=== PATIENT | female | born 1935 | race Caucasian/White ===

== ENCOUNTER 2020-10-02 12:37 | Outpatient (CLI) | payer MEDICARE, SELFPAY ==
--- NOTE | ~2020-10-02 | DEXA_ITS ---
Bone Density Report Name: Milvia Medeiros Age: 85 Sex: Female Ethnicity: White Date of : 1935 Indication: postmenopausal; height loss; hysterectomy; Referring Provider: Nuzhat Guzman Study: Bone densitometry was performed. Exam Date: October 02, 2020 Accession number: [id number] Bone Density: Region BMD T-score Z-score Classification AP Spine (L3, L4) 1.235 1.2 4.2 Normal Femoral Neck (Left) 0.928 0.7 3.2 Normal Total Hip (Left) 1.004 0.5 2.7 Normal Total Hip Bilateral Avg 0.959 0.2 2.4 Normal Femoral Neck (Right) 0.767 -0.7 1.7 Normal Total Hip (Right) 0.913 -0.2 2.0 Normal World Health Organization criteria for BMD impression classify patients as: Normal (T-score at or above -1.0), Osteopenia (T-score between -1.0 and -2.5), or Osteoporosis (T-score at or below -2.5). 10-year Fracture Risk: FRAX not reported because: All T-scores for Spine Total, Hip Total, Femoral Neck at or above -1.0 Previous Exams: Region Exam Age BMD T-score BMD Change BMD Change Date g/cm2 vs Baseline vs Previous AP Spine(L3, L4) 10/02/2020 85 1.235 1.2 0.015(1.2%)# 0.008(0.6%) 06/13/2016 80 1.227 1.1 0.007(0.6%)# -0.011(-0.9%) 05/30/2014 78 1.238 1.2 0.018(1.5%)# 0.018(1.5%)# 04/17/2012 76 1.220 1.1 Total Hip(Left) 10/02/2020 85 1.004 0.5 -0.064(-6.0%)# -0.045(-4.3%)* 06/13/2016 80 1.050 0.9 -0.018(-1.7%)# -0.016(-1.5%) 05/30/2014 78 1.065 1.0 -0.003(-0.3%)# -0.003(-0.3%)# 04/17/2012 76 1.068 1.0 Total Hip(Right) 10/02/2020 85 0.913 -0.2 -0.134(-12.8%) -0.083(-8.3%)* 06/13/2016 80 0.996 0.4 -0.051(-4.9%)# -0.041(-3.9%)* 05/30/2014 78 1.037 0.8 -0.010(-1.0%)# -0.010(-1.0%)# 04/17/2012 76 1.047 0.9 *Denotes significance at 95% confidence level, LSC for AP Spine = 0.022 g/cm2, LSC for Total Hip = 0.027 g/cm2 Clinical Information Provided by Patient: Has used the following medications: Vitamin D Has the following medical conditions: Hysterectomy Patient maximum height was 65.5 Menopause Age: 47 No regular weight bearing exercise Onset of menses at age 16 Number of children 2 Impression: The patient has normal bone mass. The BMD for the Total Hip(Left) decreased, changing by -4.3% since the last DXA exam. The BMD for the Total Hip(Right) decreased, changing by -8.3% since the last DXA exam. Discussion: BONE DENSITY IS ABOVE THE MINIMUM DESIRABLE LEVEL AT ALL SKELETAL SIT
== END 2020-10-02 12:38 | disposition home or self-care (01) ==
LOC: ANHIMG 12:39
PROVIDERS: PCP Internal Medicine; Visit Provider Nurse Practitioner
DX: Z78.0 Asymptomatic menopausal state (principal)
CPT/HCPCS: 77080

== ENCOUNTER 2022-04-29 02:41 | Day surgery (SDC) | payer MEDICARE, SELFPAY ==
[2022-04-25 13:36] VITALS: BMI 22.0
--- NOTE | 2022-04-29 10:49 | WPDANESEPPF ---
Anes - Initial Pre Proc Eval Procedure: Operation Date: 04/29/22 13:30 Proposed Procedures p Esophagogastroduodenoscopy EGD - Freyd Salinas MD Date/Time: 04/29/22 10:49 Surgeon: Fredy Salinas MD Pre Op Diagnosis: dysphagia Patient Data Age: 86 Gender: F Height: 1.65 m Weight: 60 kg Allergies Allergy/AdvReac Type Severity Reaction Status Date / Time codeine Allergy Unknown Nausea and Verified 04/29/22 12:23 Vomiting hydrocodone Allergy Unknown Nausea and Verified 04/29/22 12:23 Vomiting Penicillins Allergy Unknown hives Verified 04/29/22 12:23 Home Medications Medication Instructions Recorded Confirmed Type aspirin 81 mg tablet,delayed 81 mg PO DAILY 09/07/19 04/25/22 History release (Adult Aspirin Regimen) cholecalciferol (vitamin D3) 50 50 mcg PO DAILY 09/07/20 04/25/22 History mcg (2,000 unit) tablet losartan 100 See Rx Instructions .Route 11/12/21 04/25/22 Rx mg-hydrochlorothiazide 12.5 mg .COMPLEX #90 tabs tablet atorvastatin 40 mg tablet 20 mg PO DAILY #90 tabs 11/22/21 04/25/22 Rx omeprazole 20 mg capsule,delayed See Rx Instructions .Route 12/11/21 04/25/22 Rx release .COMPLEX #90 caps Metamucil 1 cap PO DAILY 04/25/22 04/25/22 History PreserVision AREDS 1 tab-cap PO DAILY 04/25/22 04/25/22 History Tylenol 500 mg PO DAILY 04/25/22 04/25/22 History Patient hx anesthesia problems: none Family hx anesthesia problems: none Results Review: All pre-operative results and documents have been reviewed as part of the pre-operative evaluation. [facility] Past Medical History Medical History (Updated 04/29/22 @ 10:50 by Dima Talbert DO) Chronic atrial fibrillation Constipation Essential hypertension Loose stools Mixed hyperlipidemia Postmenopausal Screening for breast cancer Type 2 diabetes mellitus without complication, without long-term current use of insulin Family History Family History Sibling Family history of malignant neoplasm Mother Family history of malignant neoplasm of cervix Patient's mother is Family history of malignant neoplasm Father Patient's father is Family history of heart disease in male family member before age 55 Other Family history of malignant neoplasm of ovary Social History Social History Smoking status: Never smoker Second hand tobacco smoke exposure: No Alcohol intake: never Substance use: never Substance use type: does not use Living arrangements: alone Spiritual care concerns: No Anes - Eval Final PreProcedure Day of Procedure 04/29/22 10:49 Patient weight: normal Heart: regular rate and rhythm Lungs: clear to auscultation and normal air movement Airway: Mallampati scale class II Neurological: alert and oriented Last oral intake: >/= 8 hours ASA classification: III Emergent: no Anesthetic plan: proceed Anesthesia type and monitoring: general GIVS and standard monitoring Results Review: All pre-operative results and documents have been reviewed as part of the pre-operative evaluation. Informed Consent: The patient's anesthetic plan and its attendant risks and benefits were discussed with the patient/family/POA. Questions were solicited and answers provided to the satisfaction of the patient/family/POA.
[2022-04-29 12:23] VITALS: BP 171/88; PULSE 87; RESP 18; TEMP 36.4; O2SAT 97
[2022-04-29] MEDS: LACTATED RINGERS 1,000 ML 150 ML IV CONT (12:40)
--- NOTE | 2022-04-29 12:48 | WPDHPUPDATE1 ---
History and Physical Update Update Date/Time: 04/29/22 12:48 History and Physical has been reviewed, including an updated exam of the patient. There are NO changes in the patient's condition. Risks, benefits, and alternatives have been discussed and questions answered. Patient agrees to proceed with procedure.
[2022-04-29 13:33] VITALS: BP 111/62; PULSE 75; RESP 25; O2SAT 99
[2022-04-29 13:43] VITALS: BP 130/75; PULSE 82; RESP 21; O2SAT 99
[2022-04-29 13:53] VITALS: BP 145/74; PULSE 75; RESP 22; O2SAT 98
== END 2022-04-29 14:00 | disposition home or self-care (01) ==
PROVIDERS: PCP Internal Medicine; Visit Provider Internal Medicine Gastroenterology
PROC: 0DJ08ZZ Inspection of Upper Intestinal Tract, Via Natural or Artificial Opening Endoscopic (ICD-10-PCS; CPT 43235; principal; 2022-04-29 13:30)
DX: R13.19 Other dysphagia (principal); R05.3 Chronic cough; R49.0 Dysphonia; Z90.49 Acquired absence of other specified parts of digestive tract; K59.00 Constipation, unspecified; R19.5 Other fecal abnormalities; Z79.82 Long term (current) use of aspirin; I10 Essential (primary) hypertension; K21.9 Gastro-esophageal reflux disease without esophagitis; I48.20 Chronic atrial fibrillation, unspecified; E11.9 Type 2 diabetes mellitus without complications; E78.2 Mixed hyperlipidemia
CPT/HCPCS: 43450; 43235; J2704; J7120

== ENCOUNTER 2022-05-07 07:14 | Outpatient (CLI) | payer MEDICARE, SELFPAY ==
--- NOTE | ~2022-05-07 | XR_ITS ---
MODIFIED ESOPHAGRAM HISTORY: Globus sensation with feeling of food getting stuck. TECHNIQUE: Modified barium esophagram was performed on 05/07/2022. I administered fluoroscopy and per formed the exam with speech pathologist. Patient was seated for lateral fluoroscopic imaging for ing estion of thin liquids, pudding, solids and quantified amounts, followed by thin liquids in uncontrol led amounts. This was recorded on tape. A single fluoroscopic spot image was also recorded. The DAP f or this procedure was 1.01 Gycm2. The amount of fluoroscopy time used during this procedure was 1.9 m inutes. FINDINGS: Oral stage: Adequate function. Pharyngeal stage: Small amount of flash laryngeal penetration with thin liquids which cleared immedia tely. No aspiration. Cervical/esophageal stage: Adequate function. IMPRESSION: Small amount of flash laryngeal penetration with thin liquids. No aspiration. Please cor relate with speech pathologist findings and specific feeding recommendations. Reviewed, dictated and finalized at location A. IMPRESSION: Small amount of flash laryngeal penetration with thin liquids. No a spiration. Please correlate with speech pathologist findings and specific feed ing recommendations.
--- NOTE | 2022-05-07 08:57 | REHSTMBS ---
Assessment and note entered by Brina De La Rosa, [employer] Modified Barium Swallow Evaluation Feeding Type Recommended Oral Food Consistency Regular, Level 7 Liquid Consistency Thin (0) ST Clinical Summary This patient was seen for a Modified Barium Swallow study at the request of her physician. She reported that this morning, she felt like a small piece of toast stuck in her throat. She reports that she has a history of a hernia, and that she has been tasting more acid in her throat lately. Additionally, she reports that pills have gotten stuck in her throat and underwent an EGD a week ago. The patient was presented with graduated amounts of thin liquid per spoon, cup, and straw, pudding mixed with semi-solid contrast medium, and both pieces of crackers and pieces of fruit mixed with the pudding mixture. Patient exhibited flash penetration on thin liquid per cup leaving no residue in the airway. Results indicate this patient's swallowing skills are grossly within normal limits. She was instructed in the use of head flexion to assist with swallowing pills and to assist with prevention of penetration/aspiration. She voiced good understanding of this teaching. No further Speech Therapy is required at this time. Patient is referred back to her physician for further assessment of her reflux concerns. Thank you for this referral.
== END 2022-05-07 07:15 | disposition home or self-care (01) ==
PROVIDERS: PCP Internal Medicine; Visit Provider Internal Medicine Gastroenterology
DX: R13.10 Dysphagia, unspecified (principal)
CPT/HCPCS: 92611

== ENCOUNTER 2022-06-10 07:43 | Outpatient (CLI) | payer MEDICARE, SELFPAY ==
--- NOTE | ~2022-06-10 | MM_ITS ---
EXAMINATION: MM screening carlos BI w raisa HISTORY: Screening mammogram TECHNIQUE: Craniocaudal and mediolateral oblique 3-D tomosynthesis images were obtained and synthetic 2-D images were generated. CAD analysis was submitted and interpreted. COMPARISON: No prior mammogram is available for comparison at this institution. BREAST PARENCHYMAL COMPOSITION: There are scattered areas of fibroglandular density. FINDINGS: No suspicious mass, calcification, or architectural distortion are identified in either barb ast to suggest malignancy. IMPRESSION: 1. No mammographic evidence of malignancy. 2. Recommend routine screening mammography while the patient remains in good health. BI-RADS Category 1: Negative Reviewed, dictated and finalized at location A. [employer] IMPRESSION: 1. No mammographic evidence of malignancy. 2. Recommend routine screening mammography while the patient remains in good he alth. BI-RADS Category 1: Negative
== END 2022-06-10 07:44 | disposition home or self-care (01) ==
LOC: ANHIMG 07:44
PROVIDERS: PCP Internal Medicine; Visit Provider Internal Medicine
DX: Z12.31 Encounter for screening mammogram for malignant neoplasm of breast (principal)
CPT/HCPCS: 77063; 77067

== ENCOUNTER 2022-10-17 14:48 | Outpatient (CLI) | payer MEDICARE, SELFPAY ==
--- NOTE | ~2022-10-17 | US_ITS ---
EXAMINATION: US venous doppler LE RT DATE: 10/17/2022 15:15 INDICATION: Right lower limb pain TECHNIQUE: Crane scale images without and with compression and Doppler images of the right lower extre mity veins were obtained. COMPARISON: 07/23/2017 FINDINGS: The right common femoral vein, profunda femoral vein, femoral vein, popliteal vein, peronea l trunk, posterior tibial veins, and greater saphenous vein are patent. An approximately 1.5 cm Siegel 's cyst is noted. IMPRESSION: 1. Patent right lower extremity veins. No evidence of deep venous thrombosis. 2. Small Siegel's cyst. Reviewed, dictated and finalized at location L.
== END 2022-10-17 14:49 | disposition home or self-care (01) ==
PROVIDERS: PCP Internal Medicine; Visit Provider Nurse Practitioner Family
DX: M79.606 Pain in leg, unspecified (principal); M79.89 Other specified soft tissue disorders; M71.21 Synovial cyst of popliteal space [Baker], right knee
CPT/HCPCS: 93971

== ENCOUNTER 2023-04-15 21:14 | Emergency (ER) | payer MEDICARE, SELFPAY ==
--- NOTE | ~2023-04-15 | CT_ITS ---
EXAMINATION: CT abdomen pelvis wo con DATE: 04/15/2023 23:27 INDICATION: Vomiting. TECHNIQUE: Computed tomography (CT) of the abdomen and pelvis was performed without intravenous contr ast. Automated exposure control and iterative reconstruction technique were employed. The dose-length product was 287.63 mGy-cm. COMPARISON: CT abdomen and pelvis 11/11/2018 FINDINGS: The visualized portions of the lung bases demonstrate mild atelectasis. No pleural effusion . The heart size is normal. There are coronary artery calcifications. No pericardial effusion. There is a 13 mm cyst in the liver. There are changes of cholecystectomy. The spleen, pancreas, adrenal gla nds, and right kidney are normal. There are cysts in left kidney measuring up to 2.0 cm. There is no urolithiasis. The appendix is normal. There are no dilated loops of bowel. There is diverticulosis of the colon without evidence of diverticulitis. There is a right inguinal hernia containing fat. There are no pathologically enlarged lymph nodes. There is no free intraperitoneal fluid. There is calcifi ed atherosclerosis of the aorta and many of the other arteries. There is lumbar dextroscoliosis. Ther e is severe thoracic and lumbar spondylosis. IMPRESSION: 1. No etiology for the patient's symptoms. Reviewed, dictated and finalized at location E.
--- NOTE | ~2023-04-15 | XR_ITS ---
EXAMINATION: XR chest 1V DATE: 04/15/2023 23:14 INDICATION: Weakness. TECHNIQUE: A single frontal view of the chest was obtained. COMPARISON: Chest 2 views 10/27/2014, chest CT 11/11/2018 FINDINGS: There is mild atelectasis in left midlung zone. No pleural effusion or pneumothorax. The he art size is normal. Surgical clips in the right upper quadrant are likely from cholecystectomy. IMPRESSION: 1. Mild atelectasis in left midlung zone. Reviewed, dictated and finalized at location E.
[2023-04-15 21:19] VITALS: BP 118/64; PULSE 98; RESP 17; TEMP 37.3; O2SAT 99
[2023-04-15 22:15] VITALS: BP 134/69; PULSE 96; RESP 18; O2SAT 96
--- NOTE | 2023-04-15 23:05 | ECG_ITS ---
Measurements Intervals [place] Rate: 93 P: 65 MD: 148 QRS: 39 QRSD: 81 T: 28 QT: 334 QTc: 416 Interpretive Statements SINUS RHYTHM WITH OCCASIONAL SUPRAVENTRICULAR PREMATURE COMPLEXES LOW QRS VOLTAGE IN PRECORDIAL LEADS [QRS DEFLECTION < 1.0 mV IN CHEST LEADS] COMPARED TO ECG 11/11/2018 21:58:10 NO SIGNIFICANT CHANGE Electronically Signed On 04-16-2023 15:42:55 CDT by Luz Tejada M.D.
[2023-04-15] MEDS: ONDANSETRON INJ 4 MG/2 ML VIAL IV PUSH (23:35)
[2023-04-15] MEDS: SODIUM CHLORIDE 0.9% IV 1,000 ML 999 ML IV CONT (23:35)
[2023-04-15 23:51] LABS: Basophils Percent Auto 0.3 % (0.2-1.2); Eosinophils Absolute Auto 0.1 K/mm3 (0-0.3); Eosinophils Percent Auto 1.1 % (0-4.4); Hematocrit 37.9 % (37.0-47.0); Hemoglobin 12.7 g/dL (12.0-15.0); Immature Granulocyte Absolute 0.05 K/mm3 (0.00-0.031); Immature Granulocyte Percent A 0.5 % (0-0.5); Lymphocytes Percent Auto 7.8 % (18.3-44.2); Mean Corpuscular HGB Conc 33.5 g/dl (32-36); Mean Corpuscular Hemoglobin 31.1 pg (26-34); Mean Corpuscular Volume 92.7 fl (80-100); Mean Platelet Volume 9.8 fl (7.4-10.4); Monocytes Absolute Auto 0.8 K/mm3 (0.1-0.6); Monocytes Percent Auto 7.7 % (2.6-8.5); Neutrophils Absolute Auto 8.5 K/mm3 (1.3-6.7); Neutrophils Percent Auto 82.6 % (45.5-73.1); Platelet Count Result 232 k/mm3 (150-375); Red Blood Count 4.09 M/mm3 (4.2-5.4); Red Cell Distribution Width 13.7 % (11.5-14.5); White Blood Count 10.3 K/mm3 (4.5-10.0)
[2023-04-16 00:04] LABS: Alanine Aminotransferase 19 U/L (6-35); Albumin Level 4.2 g/dL (3.5-5.1); Alkaline Phosphatase 96 U/L (38-126); Anion Gap 8 mmol/L (8-16); Aspartate Amino Transferase 34 U/L (14-36); Bilirubin,Total 0.7 mg/dL (0.2-1.3); Blood Urea Nitrogen 13 mg/dL (7-17); Calcium 8.9 mg/dL (8.4-10.2); Carbon Dioxide 30 mmol/L (22-30); Chloride 95 mmol/L (98-107); Estimated CRCL calculation 40 ml/min; Estimated Glomerular Filt Rate > 60; Glucose 130 mg/dL (65-110); Potassium 2.9 mmol/L (3.4-5.0); Sodium 133 mmol/L (137-145)
[2023-04-16 00:08] VITALS: BP 124/74; PULSE 97; RESP 20; O2SAT 97
[2023-04-16] MEDS: SODIUM CHLORIDE 0.9% IV 1,000 ML 999 ML IV CONT (00:33)
[2023-04-16 01:23] LABS: Appearance Urine Clear (Clear); Bacteria Urine None Seen /hpf; Bilirubin Urine Negative (Negative); Blood Urine Trace (Negative); Color Urine Yellow (Yellow); Glucose Urine UA Negative (Negative); Ketones Urine 1+ mg/dL (Negative); Leukocyte Esterase Ur 1+ LEU/UL (Negative); Nitrate Urine Negative (Negative); Non Pathogenic Casts 0-2; Protein Urine Negative (Negative); Specific Grav Ur 1.008 (1.001-1.035); Squamous Epithelial Cell Urine None seen /hpf (Few); Urobilinogen Urine 0.2 mg/dL (<2.0)
[2023-04-16 01:27] LABS: Add Urine Microscopic? YES
--- NOTE | 2023-04-16 01:30 | ED.GENADULT ---
HPI - General Adult General Chief complaint: Nausea/Vomiting/Diarrhea Stated complaint: n/v/d, staph infection Time Seen by Provider: 04/15/23 22:30 History of Present Illness HPI narrative: Patient presents the emergency department with her son. For the past few days that she has had no appetite. She gags when she eats anything. She is having dry heaving. Decreased bowel movements. Patient denies fevers chills. She had cellulitis to her left lower extremity and has been taking minocycline. She was told she had staph. Overall the left lower extremity looks well and has almost resolved Related Data Home Medications Medication Instructions Recorded Confirmed aspirin 81 mg tablet,delayed 81 mg PO DAILY 09/07/19 10/17/22 release (Adult Aspirin Regimen) cholecalciferol (vitamin D3) 50 50 mcg PO DAILY 09/07/20 10/17/22 mcg (2,000 unit) tablet PreserVision AREDS 1 tab-cap PO DAILY 04/25/22 10/17/22 Tylenol 500 mg PO DAILY 04/25/22 10/17/22 Allergies Allergy/AdvReac Type Severity Reaction Status Date / Time codeine Allergy Unknown Nausea and Verified 04/15/23 22:23 Vomiting hydrocodone Allergy Unknown Nausea and Verified 04/15/23 22:23 Vomiting Penicillins Allergy Unknown hives Verified 04/15/23 22:23 Review of Systems Review of Systems: Review of systems negative except what is documented in the [facility] Past Medical History Medical History Chronic atrial fibrillation Constipation Essential hypertension Loose stools Mixed hyperlipidemia Postmenopausal Screening for breast cancer Type 2 diabetes mellitus without complication, without long-term current use of insulin Family History Family History Sibling Family history of malignant neoplasm Mother Family history of malignant neoplasm of cervix Patient's mother is Family history of malignant neoplasm Father Patient's father is Family history of heart disease in male family member before age 55 Other Family history of malignant neoplasm of ovary Social History Social History Smoking status: Never smoker Second hand tobacco smoke exposure: No Alcohol intake: never Substance use: never Substance use type: does not use Living arrangements: alone Spiritual care concerns: No Exam Narrative: GENERAL: Well-appearing, well-nourished, and in no acute distress. HEAD: Normocephalic, atraumatic. EYES: PERRLA and EOMI. ENT: Nares clear, no rhinorrhea or epistaxis. Mucous membranes moist. NECK: Supple. CHEST: Clear to auscultation. No respiratory distress. HEART: Regular rate and rhythm. ABDOMEN: Soft, nontender, nondistended. EXTREMITIES: Normal range of motion. No edema. SKIN: Warm, dry, no rash. NEURO: No focal deficits. Alert and oriented x3. PSYCH: Normal mood and affect. Course Course Emergency Course: Patient overall well-appearing. In no distress. Exam benign including abdomen that is soft and nontender. Vital signs stable. Labs also grossly unremarkable. She states she feels dehydrated and has not been able to urinate. Urine pending. Troponins unremarkable. CT scan abdomen pelvis negative for acute pathology. Vital Signs Vital signs: Vital Signs Temperature 37.3 C 04/15/23 21:19 Pulse Rate 98 04/15/23 21:19 Respiratory Rate 17 04/15/23 21:19 Blood Pressure 118/64 04/15/23 21:19 Pulse Oximetry 99 04/15/23 21:19 Oxygen Delivery Room Air 04/15/23 21:19 Temperature 37.3 C 04/15/23 21:19 Pulse Rate 88 04/16/23 02:15 Respiratory Rate 19 04/16/23 02:15 Blood Pressure 110/60 04/16/23 02:15 Pulse Oximetry 95 04/16/23 02:15 Oxygen Delivery Room Air 04/15/23 21:19 Medical Decision Making [facility] Narrative Medical decision making narrative: Urine shows possible very
[2023-04-16 02:15] VITALS: BP 110/60; PULSE 88; RESP 19; O2SAT 95
== END 2023-04-16 02:14 | disposition home or self-care (01) ==
PROVIDERS: Emergency Provider Emergency Medicine; PCP Nurse Practitioner Family
DX: E86.0 Dehydration (principal); R63.0 Anorexia; R11.2 Nausea with vomiting, unspecified; R82.998 Other abnormal findings in urine; I48.20 Chronic atrial fibrillation, unspecified; I10 Essential (primary) hypertension; E11.9 Type 2 diabetes mellitus without complications; E78.2 Mixed hyperlipidemia; Z68.22 Body mass index [BMI] 22.0-22.9, adult; Z79.82 Long term (current) use of aspirin
CPT/HCPCS: 36415; 71045; 74176; 80053; 81001; 84484; 85025; 87077; 87086; 87186; 93005; 96360; 96361; 96374; 99284; J2405; J7030

== ENCOUNTER 2023-04-19 17:39 | Emergency (ER) | payer MEDICARE, SELFPAY ==
[2023-04-19] VITALS (16 sets, daily range): BP systolic 128–148; BP diastolic 74–102; PULSE 102–126; RESP 13–31; TEMP 36.6; O2SAT 87–99
--- NOTE | ~2023-04-19 | CT_ITS ---
EXAMINATION: CT diagnostic chest w con DATE: 04/19/2023 19:01 INDICATION: MIDSTERNAL CHEST PAIN, SOB TECHNIQUE: Computed tomography (CT) of the chest was performed with 100 mL Omnipaque-350 intravenous contrast. Automated exposure control and iterative reconstruction technique were employed. The dose-l ength product was 136.41 mGy-cm. COMPARISON: X-ray chest and CT abdomen pelvis, same date. FINDINGS: CHEST: Thoracic aorta: No significant dilation. Mild arch calcification. Lung parenchyma and airways: Linear scar. Mild peripheral reticulations. Thoracic inlet, axillae and chest wall: No thyroid or soft tissue mass. No axillary lymphadenopathy. Mediastinum: No mass or lymphadenopathy. Heart and pericardium: Mild cardiomegaly. No pericardial effusion. Coronary artery calcifications: Mild. Pleura: No effusion or mass. Upper abdomen: No significant finding. Thoracic bones: No acute osseous finding in the chest. IMPRESSION: No acute thoracic process detected. Reviewed, dictated and finalized at location K.
--- NOTE | ~2023-04-19 | XR_ITS ---
EXAMINATION: XR chest 1V Exam Date/Time: 04/19/2023 18:45 CDT HISTORY: Upper abdominal pain Comparison: 04/15/2023. RESULT: Lines, tubes, and devices: None. Lungs and pleura: Mild reticular opacities. Senescent change. Lingular scar. Cardiomediastinal silhouette: Stable. Other: No acute osseous or upper abdominal finding. IMPRESSION: No acute cardiopulmonary process. Reviewed, dictated and finalized at location K.
--- NOTE | ~2023-04-19 | CT_ITS ---
EXAMINATION: CT abdomen pelvis w con DATE: 04/19/2023 18:53 INDICATION: abd pain TECHNIQUE: Computed tomography (CT) of the abdomen and pelvis was performed with 100 mL Omnipaque-350 intravenous contrast. Automated exposure control and iterative reconstruction technique were employe d. The dose-length product was 374.60 mGy-cm. COMPARISON: 04/15/2023. FINDINGS: Lower thorax: Senescent change. Bibasilar scar/atelectasis. Liver: Small left lobe cyst or hemangioma. Biliary/Gallbladder: Gallbladder is absent. Mild intrahepatic and extra hepatic bile duct dilation, l ikely secondary to cholecystectomy. Pancreas: No mass or duct dilation. Spleen: Normal. Adrenals:No mass. Kidneys: No suspicious mass, obstructing stone, or hydronephrosis. GI tract: Mild distal esophageal and gastric wall edema. No small or large bowel dilation. Normal shae endix. Diverticulosis without diverticulitis. Mesentery/Peritoneum: No ascites, mass, or free air. Retroperitoneum: No mass. Atherosclerotic abdominal aortic and/or arterial calcifications. Pelvis: Pelvic organs are within normal limits. Soft Tissues: Soft tissues and body wall unremarkable. Bones: No acute osseous finding. IMPRESSION: Mild esophagitis/gastritis. Otherwise, no acute abdominopelvic process detected Reviewed, dictated and finalized at location K.
--- NOTE | 2023-04-19 17:50 | ECG_ITS ---
Measurements Intervals [place] Rate: 104 P: 58 [place]: 141 QRS: 22 QRSD: 82 T: 17 QT: 311 QTc: 410 Interpretive Statements SINUS TACHYCARDIA WITH OCCASIONAL VENTRICULAR PREMATURE COMPLEXES NONSPECIFIC ST AND T-WAVE ABNORMALITY ABNORMAL ECG COMPARED TO ECG 04/15/2023 23:54:52 SINUS TACHYCARDIA NOW PRESENT T-WAVE ABNORMALITY NOW PRESENT Electronically Signed On 04-20-2023 8:49:13 CDT by Willis Aragon M.D.
--- NOTE | 2023-04-19 17:57 | ED.ABDPAIN ---
HPI - Abdominal Pain General Chief Complaint: Abdominal Pain Stated Complaint: epigastric burning Time Seen by Provider: 04/19/23 17:49 Source: patient Mode of arrival: EMS Related Data Home Medications Medication Instructions Recorded Confirmed aspirin 81 mg tablet,delayed 81 mg PO DAILY 09/07/19 10/17/22 release (Adult Aspirin Regimen) cholecalciferol (vitamin D3) 50 50 mcg PO DAILY 09/07/20 10/17/22 mcg (2,000 unit) tablet PreserVision AREDS 1 tab-cap PO DAILY 04/25/22 10/17/22 Tylenol 500 mg PO DAILY 04/25/22 10/17/22 Allergies Allergy/AdvReac Type Severity Reaction Status Date / Time codeine Allergy Unknown Nausea and Verified 04/19/23 17:54 Vomiting hydrocodone Allergy Unknown Nausea and Verified 04/19/23 17:54 Vomiting Penicillins Allergy Unknown hives Verified 04/19/23 17:54 [facility] Past Medical History Medical History Chronic atrial fibrillation Constipation Essential hypertension Loose stools Mixed hyperlipidemia Postmenopausal Screening for breast cancer Type 2 diabetes mellitus without complication, without long-term current use of insulin Family History Family History Sibling Family history of malignant neoplasm Mother Family history of malignant neoplasm of cervix Patient's mother is Family history of malignant neoplasm Father Patient's father is Family history of heart disease in male family member before age 55 Other Family history of malignant neoplasm of ovary Social History Social History Smoking status: Never smoker Second hand tobacco smoke exposure: No Alcohol intake: never Substance use: never Substance use type: does not use Living arrangements: alone Spiritual care concerns: No Course Vital Signs Vital signs: Vital Signs Temperature 36.6 C 04/19/23 17:40 Pulse Rate 102 H 04/19/23 17:40 Respiratory Rate 13 04/19/23 17:40 Blood Pressure 145/77 H 04/19/23 17:40 Pulse Oximetry 93 04/19/23 17:40 Oxygen Delivery Room Air 04/19/23 17:40 Temperature 36.6 C 04/19/23 17:40 Pulse Rate 102 H 04/19/23 17:40 Respiratory Rate 13 04/19/23 17:40 Blood Pressure 145/77 H 04/19/23 17:40 Pulse Oximetry 93 04/19/23 17:40 Oxygen Delivery Room Air 04/19/23 17:40 MDM - Abdominal Pain ECG Data EKG #1: Attestation: I personally reviewed and interpreted this ECG as follows: ECG completion date: 04/19/23 ECG completion time: 18:44 Interpretation: Sinus tachycardia at 104 bpm with occasional PVCs, nonspecific T wave abnormality, abnormal rhythm EKG, compared to EKG on April 15, 2023 sinus tachycardia now present, T wave abnormality now present. Discharge Plan Discharge Instructions: Antibiotic Form Prescriptions: No Action aspirin [Adult Aspirin Regimen] 81 mg tablet,delayed release (DR/EC) 81 mg PO DAILY cholecalciferol (vitamin D3) 50 mcg (2,000 unit) tablet 50 mcg PO DAILY famotidine [Pepcid] 40 mg tablet 40 mg PO DAILY Qty: 7 0RF ondansetron 4 mg tablet,disintegrating 4 mg PO Q8H PRN (Reason: nausea and vomiting) Qty: 20 0RF PreserVision AREDS 1 tab-cap PO DAILY Tylenol 500 mg PO DAILY losartan-hydrochlorothiazide 100-12.5 mg tablet See Rx Instructions .ROUTE .COMPLEX Qty: 100 1RF Dose Instruction: Take 1 tablet by mouth once daily Rx Instructions: Take 1 tablet by mouth once daily omeprazole 20 mg capsule,delayed release(DR/EC) See Rx Instructions .ROUTE .COMPLEX Qty: 90 1RF Dose Instruction: Take 1 capsule by mouth once daily Rx Instructions: Take 1 capsule by mouth once daily atorvastatin 20 mg tablet 20 mg PO DAILY Qty: 100 2RF Follow-up/Referrals: Ghada Floyd APRN [Primary Care Provider] -
[2023-04-19 18:10] LABS: Basophils Percent Auto 0.3 % (0.2-1.2); Eosinophils Absolute Auto 0.4 K/mm3 (0-0.3); Eosinophils Percent Auto 3.9 % (0-4.4); Hematocrit 33.9 % (37.0-47.0); Hemoglobin 11.4 g/dL (12.0-15.0); Immature Granulocyte Absolute 0.04 K/mm3 (0.00-0.031); Immature Granulocyte Percent A 0.4 % (0-0.5); Lymphocytes Absolute Auto 1.04 K/mm3 (0.9-3.2); Lymphocytes Percent Auto 9.5 % (18.3-44.2); Mean Corpuscular HGB Conc 33.6 g/dl (32-36); Mean Corpuscular Volume 92.1 fl (80-100); Mean Platelet Volume 9.2 fl (7.4-10.4); Monocytes Absolute Auto 0.9 K/mm3 (0.1-0.6); Monocytes Percent Auto 8.6 % (2.6-8.5); Neutrophils Absolute Auto 8.5 K/mm3 (1.3-6.7); Neutrophils Percent Auto 77.3 % (45.5-73.1); Platelet Count Result 326 k/mm3 (150-375); Red Blood Count 3.68 M/mm3 (4.2-5.4); Red Cell Distribution Width 13.3 % (11.5-14.5)
[2023-04-19] MEDS: SODIUM CHLORIDE 0.9% IV 1,000 ML 999 ML IV CONT ×2 (18:13→20:19)
[2023-04-19 18:24] LABS: Alanine Aminotransferase 23 U/L (6-35); Albumin Level 3.6 g/dL (3.5-5.1); Alkaline Phosphatase 88 U/L (38-126); Anion Gap 7 mmol/L (8-16); Aspartate Amino Transferase 29 U/L (14-36); Bilirubin,Total 0.6 mg/dL (0.2-1.3); Blood Urea Nitrogen 15 mg/dL (7-17); Calcium 8.5 mg/dL (8.4-10.2); Carbon Dioxide 32 mmol/L (22-30); Chloride 95 mmol/L (98-107); Estimated CRCL calculation 33 ml/min; Estimated Glomerular Filt Rate 53; Glucose 115 mg/dL (65-110); Lipase 183 U/L (23-300); Potassium 2.8 mmol/L (3.4-5.0); Sodium 134 mmol/L (137-145)
[2023-04-19 18:45] LABS: Troponin I 0.017 ng/mL (0.000-0.034)
--- NOTE | 2023-04-19 19:05 | ED.ABDPAIN ---
HPI - Abdominal Pain General Chief Complaint: Abdominal Pain Stated Complaint: epigastric burning Time Seen by Provider: 04/19/23 17:49 History of Present Illness HPI narrative: 87-year-old female present emerged department for evaluation of throat and epigastric soreness. Patient denies any prior history of esophagitis gastritis or heartburn. Patient states symptoms started about 11:00. Patient denies any other chest pain or pain that radiates to her back. Patient denies any abdominal pain. Patient did have a recent illness where she had decreased p.o. intake and persistent nausea with some dry heaving. Patient states she had been feeling better today had been eating and drinking well but developed the epigastric soreness. Patient denies any other pain or injury Related Data Home Medications Medication Instructions Recorded Confirmed aspirin 81 mg tablet,delayed 81 mg PO DAILY 09/07/19 10/17/22 release (Adult Aspirin Regimen) cholecalciferol (vitamin D3) 50 50 mcg PO DAILY 09/07/20 10/17/22 mcg (2,000 unit) tablet PreserVision AREDS 1 tab-cap PO DAILY 04/25/22 10/17/22 Tylenol 500 mg PO DAILY 04/25/22 10/17/22 Allergies Allergy/AdvReac Type Severity Reaction Status Date / Time codeine Allergy Unknown Nausea and Verified 04/19/23 17:54 Vomiting hydrocodone Allergy Unknown Nausea and Verified 04/19/23 17:54 Vomiting Penicillins Allergy Unknown hives Verified 04/19/23 17:54 Review of Systems Review of Systems: All systems reviewed & are unremarkable except as noted in HPI and below PMFSH Past Medical History Medical History Chronic atrial fibrillation Constipation Essential hypertension Loose stools Mixed hyperlipidemia Postmenopausal Screening for breast cancer Type 2 diabetes mellitus without complication, without long-term current use of insulin Family History Family History Sibling Family history of malignant neoplasm Mother Family history of malignant neoplasm of cervix Patient's mother is Family history of malignant neoplasm Father Patient's father is Family history of heart disease in male family member before age 55 Other Family history of malignant neoplasm of ovary Social History Social History Smoking status: Never smoker Second hand tobacco smoke exposure: No Alcohol intake: never Substance use: never Substance use type: does not use Living arrangements: alone Spiritual care concerns: No Exam Narrative: APPEARANCE: Well appearing, no pain, no distress, well-nourished. HEAD: normocephalic, atraumatic. EYES: PERRLA/EOMI, conjunctivae clear. NOSE: Normal no drainage NECK: Supple. No adenopathy, no masses. RESPIRATORY: Airway patent, respirations nonlabored. Clear to auscultation bilaterally, no rales, rhonchi, wheezing. CARDIOVASCULAR: Regular rate and rhythm without murmurs rubs or gallops. ABDOMINAL: Soft, nontender, nondistended, normal bowel sounds MUSCULOSKELETAL: Moves all extremities. Strength/ROM intact, No edema, No calf tenderness. NEURO: Alert. Cranial nerves II through XII intact. Grossly intact SKIN: Warm, dry. Normal Color Course Course Emergency Course: 87-year-old female presented the emergency department for evaluation of epigastric soreness. Patient is afebrile but does have a minor leukocytosis of 11.1. Hemoglobin is stable 11.4. Patient CMP patient does have a potassium of 2.8 this was replaced with both IV and p.o. Patient's creatinine is at her baseline but the GFR is a little low and patient is tachycardic with a heart rate into the 1 teens. Patient is being rehydrated. Patient had a negative troponin. Imaging was ordered and did show evidence of esophagitis/gastritis on the abdominal CT, chest CT showed no acute process along with the c
[2023-04-19] MEDS: BELLADONNA ALK/PHENOB ELIX 10 ML, MAG HYDROX/ALUMINUM HYD/SIMETH 30 ML, LIDOCAINE HCL 2... PO (19:32)
[2023-04-19 19:35] LABS: INR 1.1; Prothrombin Time 14.6 Seconds (11.1-14.7)
[2023-04-19 19:36] LABS: Partial Thromboplastin Time 38.9 SECONDS (22.3-36.8)
[2023-04-19] MEDS: POTASSIUM CHLORIDE 20 MEQ PACKET (FOR LIQUID) 40 MEQ PO (19:42)
[2023-04-19 19:52] LABS: Appearance Urine Clear (Clear); Bilirubin Urine Negative (Negative); Blood Urine 1+ (Negative); Color Urine Yellow (Yellow); Glucose Urine UA Negative (Negative); Ketones Urine Negative (Negative); Leukocyte Esterase Ur Negative LEU/UL (Negative); Nitrate Urine Negative (Negative); Protein Urine Negative (Negative); Specific Grav Ur <= 1.005 (1.001-1.035); Urobilinogen Urine 0.2 mg/dL (<2.0); pH Urine 5.5 (5.0-9.0)
[2023-04-19] MEDS: KCL 20 MEQ/SW 100 ML 100 ML 50 MEQ IVPB (19:52)
[2023-04-19] MEDS: ONDANSETRON INJ 4 MG/2 ML VIAL (19:58)
[2023-04-19] MEDS: SODIUM CHLORIDE 0.9% IV 250 ML 999 ML (19:58)
[2023-04-19 20:01] LABS: Bacteria Urine None Seen /hpf; Non Pathogenic Casts 0-2; Squamous Epithelial Cell Urine None seen /hpf (Few); WBC Urine 0-5 /hpf
[2023-04-19 20:07] LABS: Add Urine Microscopic? YES
[2023-04-19] MEDS: METOPROLOL TARTRATE INJ 5 MG/5 ML VIAL IV PUSH (21:32)
--- NOTE | 2023-04-19 21:51 | PC.NURSE ---
Per EDP wean patient off oxygen.
[2023-04-19 22:14] LABS: Troponin I 0.028 ng/mL (0.000-0.034)
== END 2023-04-19 23:01 | disposition home or self-care (01) ==
PROVIDERS: Emergency Medicine; Emergency Provider Emergency Medicine; PCP Nurse Practitioner Family
DX: K20.90 Esophagitis, unspecified without bleeding (principal); I48.20 Chronic atrial fibrillation, unspecified; I10 Essential (primary) hypertension; E78.2 Mixed hyperlipidemia; E11.9 Type 2 diabetes mellitus without complications; Z79.82 Long term (current) use of aspirin; R00.0 Tachycardia, unspecified; I49.3 Ventricular premature depolarization; R94.31 Abnormal electrocardiogram [ECG] [EKG]
CPT/HCPCS: 36415; 71045; 71260; 74177; 80053; 81001; 83690; 84484; 85025; 85610; 85730; 93005; 96361; 96365; 96366; 96375; 99284; A9270; J2405; J3480; J7030; J7050; Q9967

== ENCOUNTER 2023-11-27 09:37 | Outpatient (CLI) | payer MEDICARE, SELFPAY ==
--- NOTE | ~2023-11-27 | XR_ITS ---
Right Knee Technique: AP, lateral, and sunrise views were obtained. Clinical History: Pain Findings: No fracture or dislocation is seen. Osseous alignment is anatomic. There is moderate tricom partmental degenerative change. Soft tissues are unremarkable. No joint effusion is seen. Impression: Moderate tricompartmental degenerative change. Reviewed, dictated and finalized at [facility]. Impression: Moderate tricompartmental degenerative change.
--- NOTE | ~2023-11-27 | XR_ITS ---
EXAMINATION: XR lumbar spine 2-3V DATE: 11/27/2023 10:07 INDICATION: Spinal stenosis. Right low back pain. TECHNIQUE: 3 views of lumbar spine were obtained. COMPARISON: None. FINDINGS: There is 20 degrees dextroscoliosis of lumbar spine. There is 3 mm retrolisthesis of L1 on L2, L2 on L3, and L3 on L4 and 4 mm anterolisthesis of L4 on L5. There is severely decreased disc hei ght at L1-L2 and L2-L3, L3-L4 and mildly decreased disc height at L4-L5 and L5-S1. There is multileve l severe facet joint osteoarthritis. Surgical clips in the right upper quadrant are likely from francisco cystectomy. IMPRESSION: 1. Severe lumbar spondylosis. 2. Lumbar dextroscoliosis. Reviewed, dictated and finalized at location E.
== END 2023-11-27 09:38 | disposition home or self-care (01) ==
PROVIDERS: PCP Nurse Practitioner; Visit Provider Nurse Practitioner
DX: M25.561 Pain in right knee (principal); M47.896 Other spondylosis, lumbar region; M17.11 Unilateral primary osteoarthritis, right knee
CPT/HCPCS: 72100; 73562

== ENCOUNTER 2024-02-03 08:36 | Emergency (ER) | payer MEDICARE, SELFPAY ==
[2024-02-03 08:44] VITALS: BP 139/63; PULSE 96; RESP 20; TEMP 37.3; O2SAT 98
--- NOTE | 2024-02-03 09:02 | ED.URI ---
HPI - URI/Sore Throat General Chief Complaint: Upper Respiratory Infection Stated Complaint: Sore Throat Time Seen by Provider: 02/03/24 09:02 History of Present Illness HPI Narrative: Patient presents with complaints of sore throat, nasal drainage, cough with occasional wheezing. Symptoms have been present for 2-3 days. She denies any chest pain. She denies any GI symptoms including nausea and vomiting. She does report that it wears her out to walk up and down the steps, but does deny any outright shortness of breath. She denies any malaise or fatigue Related Data Home Medications Medication Instructions Recorded Confirmed aspirin 81 mg tablet,delayed 81 mg PO DAILY 09/07/19 02/03/24 release (Adult Aspirin Regimen) PreserVision AREDS 1 tab-cap PO DAILY 04/25/22 10/17/22 Tylenol 500 mg PO DAILY 04/25/22 10/17/22 Balance of Nature PO DAILY 04/21/23 amino acids-multivit with iron and 2 tablet PO DAILY 04/21/23 02/03/24 minerals tablet Allergies Allergy/AdvReac Type Severity Reaction Status Date / Time codeine Allergy Intermediate Nausea and Verified 02/03/24 08:45 Vomiting hydrocodone Allergy Intermediate Nausea and Verified 02/03/24 08:45 Vomiting Penicillins Allergy Intermediate hives Verified 02/03/24 08:45 Review of Systems Constitutional: Constitutional: Reports as per HPI, Denies headache(s), Denies lethargy and Denies malaise ENT: Reports nasal congestion, Reports nasal discharge, Reports post nasal drip and Reports sore throat Cardiovascular: Cardiovascular: Reports as per HPI and Reports no additional cardiovascular complaints Respiratory: Respiratory: Reports as per HPI, Reports cough, Reports dyspnea on exertion and Reports wheezing Musculoskeletal: Musculoskeletal: Reports no additional musculoskeletal complaints Neurologic: Reports system reviewed and no additional complaints, except as documented [facility] Past Medical History Medical History Chronic atrial fibrillation Constipation Essential hypertension Loose stools Mixed hyperlipidemia Postmenopausal Screening for breast cancer Type 2 diabetes mellitus without complication, without long-term current use of insulin Family History Family History Sibling Family history of malignant neoplasm Mother Family history of malignant neoplasm of cervix Patient's mother is Family history of malignant neoplasm Father Patient's father is Family history of heart disease in male family member before age 55 Other Family history of malignant neoplasm of ovary Social History Social History Smoking status: Never smoker Second hand tobacco smoke exposure: No Alcohol intake: never Substance use: never Substance use type: does not use Living arrangements: alone Spiritual care concerns: No Exam Const: General: cooperative, healthy appearing, comfortable, no acute distress, well developed, alert and awake Limitations: no limitations HENMT: Mouth: Yes moist mucous membranes Throat: posterior oropharynx abnormal erythema and postnasal drainage Neck: Neck: normal visual inspection and full ROM Resp: Auscultation: clear to auscultation bilaterally, no rhonchi and no wheezes Cardio: Heart sounds: Murmur heart sound present Neuro: General: oriented to person, oriented to place, oriented to time and patient oriented x3 Course Course Level of Care: Express Care Visit Vital Signs Vital signs: Vital Signs Temperature 99.1 F 02/03/24 08:44 Pulse Rate 96 02/03/24 08:44 Respiratory Rate 20 02/03/24 08:44 Blood Pressure 139/63 02/03/24 08:44 Pulse Oximetry 98 02/03/24 08:44 Oxygen Delivery Room Air 02/03/24 08:44 Temperature 99.1 F 02/03/24 08:44 Pulse Rate 96 02/03/24 08:44 Respiratory
[2024-02-03 09:09] LABS: EDSTREPNEGPOS1 Presumptive Negative
[2024-02-03 09:10] LABS: EDINFLUASCREEN Negative; EDINFLUBSCREEN Negative
== END 2024-02-03 09:34 | disposition home or self-care (01) ==
PROVIDERS: Emergency Provider Nurse Practitioner Family; PCP Nurse Practitioner
DX: U07.1 COVID-19 (principal); I48.20 Chronic atrial fibrillation, unspecified; I10 Essential (primary) hypertension; E78.2 Mixed hyperlipidemia; E11.9 Type 2 diabetes mellitus without complications; Z79.82 Long term (current) use of aspirin
CPT/HCPCS: 87426; 87804; 87880; 99213; G0463

== ENCOUNTER 2025-03-25 08:34 | Outpatient (CLI) | payer MEDICARE, SELFPAY ==
--- NOTE | ~2025-03-25 | MM_ITS ---
EXAMINATION: MM screening carlos BI w raisa HISTORY: Screening TECHNIQUE: Craniocaudal and mediolateral oblique 3-D tomosynthesis images were obtained and synthetic 2-D images were generated. CAD analysis was submitted and interpreted. COMPARISON: 06/02/2022 BREAST PARENCHYMAL COMPOSITION: There are scattered areas of fibroglandular density. FINDINGS: There is no evidence of suspicious mass, calcification, or architectural distortion to suggest malignancy in either breast. IMPRESSION: 1. No mammographic evidence of malignancy. 2. Recommend routine screening mammography in one year. BI-RADS Category 1: Negative Reviewed, dictated and finalized at location B.
== END 2025-03-25 08:35 | disposition home or self-care (01) ==
LOC: MICIMG 08:35
PROVIDERS: PCP Nurse Practitioner; Visit Provider Nurse Practitioner
DX: Z12.31 Encounter for screening mammogram for malignant neoplasm of breast (principal); N64.4 Mastodynia
CPT/HCPCS: 77063; 77067